=== PATIENT | female | born 1955 | race Caucasian/White ===

== ENCOUNTER 2023-02-23 08:32 | Outpatient (CLI) | payer MEDICARE, SELFPAY | END 2023-02-23 08:33 | disposition home or self-care (01) | LOC: NFLDREF 16:46 | PROVIDERS: PCP Physician Assistant Medical; Referring Provider Physician Assistant Medical; Visit Provider Physician Assistant Medical | DX: Z00.00 Encounter for general adult medical examination without abnormal findings (principal); R03.0 Elevated blood-pressure reading, without diagnosis of hypertension; D64.9 Anemia, unspecified; R41.89 Other symptoms and signs involving cognitive functions and awareness; R46.89 Other symptoms and signs involving appearance and behavior | CPT/HCPCS: 80061; 82607; 83540; 83550; 84443; 87086 ==

== ENCOUNTER 2023-03-11 16:17 | Outpatient (CLI) | payer MEDICARE, SELFPAY | END 2023-03-11 16:18 | disposition home or self-care (01) | PROVIDERS: PCP Physician Assistant Medical; Visit Provider Physician Assistant Medical | DX: R41.89 Other symptoms and signs involving cognitive functions and awareness (principal); R03.0 Elevated blood-pressure reading, without diagnosis of hypertension; D64.9 Anemia, unspecified | CPT/HCPCS: 82306; 82607; 82746; 84425; 84443 ==

== ENCOUNTER 2023-04-15 08:27 | Outpatient (CLI) | payer MEDICARE, SELFPAY ==
--- NOTE | 2023-04-15 09:15 | CRLHL7_ITS ---
For Patients: As a result of the Cures Act, medical imaging exams and procedure reports are released immediately into your electronic medical record. You may view this report before your referring provider. If you have questions, please contact your health care provider. Indication: Change in cognitive function. Technique: Multiplanar, multisequence MRI of the brain was performed without intravenous contrast. Comparison: None relevant available. Findings: Moderate thinning of the corpus callosum. [facility] clivus appear intact. Mild degenerative change visualized upper cervical spine. There is no restricted diffusion. No intracranial hemorrhage. The ventricles are proportionate to the cerebral sulci. The 4th ventricle appears midline. The basal cisterns appear patent. No abnormal extra-axial fluid collection identified. Mild to moderate parenchymal volume loss. Mild T2 FLAIR hyperintense foci within the subcortical and periventricular white matter, favored to represent chronic ischemic microvascular disease. There is no intracranial mass, abnormal mass-effect or midline shift identified. Major intracranial vascular flow voids appear grossly intact. Both globes are preserved. Impression: 1. No acute/subacute infarct. 2. Mild to moderate parenchymal volume loss with mild chronic ischemic microvascular disease. Dictated by Todd Anton MD @ 04/15/2023 2:53:10 PM (Electronically Signed)
== END 2023-04-15 08:28 | disposition home or self-care (01) ==
PROVIDERS: PCP Physician Assistant Medical; Referring Provider Psychiatry & Neurology Neurology; Visit Provider Physician Assistant Medical
DX: R41.89 Other symptoms and signs involving cognitive functions and awareness (principal); I67.82 Cerebral ischemia; R46.89 Other symptoms and signs involving appearance and behavior
CPT/HCPCS: 70551

== ENCOUNTER 2023-06-02 14:50 | Outpatient (CLI) | payer MEDICARE, SELFPAY ==
--- NOTE | 2023-06-02 15:00 | CRLHL7_ITS ---
For Patients: As a result of the Century Cures Act, medical imaging exams and procedure reports are released immediately into your electronic medical record. You may view this report before your referring provider. If you have questions, please contact your health care provider. BILATERAL SCREENING MAMMOGRAM WITH COMPUTER-AIDED DETECTION AND TOMOSYNTHESIS TECHNIQUE: CC and MLO views were obtained. These mammographic images have been obtained using full-field digital technique. These mammographic images were interpreted with the benefit of computer-aided detection. Breast Tomosynthesis was used in this interpretation. COMPARISON FILM: 07/22/18, 12/25/16, 07/10/15. FINDINGS: The breasts are heterogeneously dense, which may obscure small masses IMPRESSION: There is no radiographic evidence for malignancy. ASSESSMENT: BI-RADS Category 1: Negative RECOMMENDATION: Routine screening mammogram in 1 year. A lay language report of this examination will be provided to the patient. Raghavendra Hernandez M.D. Diagnostic Radiologist [email or web address] GREY/Dictated by: Raghavendra Hernandez MD @ 06/03/2023 8:34:00 AM (Electronically Signed)
--- NOTE | 2023-06-02 15:30 | CRLHL7_ITS ---
For Patients: As a result of the Century Cures Act, medical imaging exams and procedure reports are released immediately into your electronic medical record. You may view this report before your referring provider. If you have questions, please contact your health care provider. DXA BONE MINERAL DENSITY STUDY Current height (in): 64.0. Weight (lb): 137.0. Menopause age: 56. Ethnicity: White. Reason for exam: Screening. 1. Have you had a previous hip or vertebral fracture? No. 2. Have you had any fractures during your adult life which did not result from significant trauma (e.g., auto accident)? No. 3. Did either of your parents have a hip fracture? No. 4. Do you smoke? No. 5. Have you ever taken Glucocorticoids? No. 6. Do you have rheumatoid arthritis? No. 7. Do you have secondary osteoporosis? No. 8. Do you drink 3 or more alcoholic drinks per day? No. 9. Are you being treated for osteoporosis? No. 10. Have you ever taken any of the following medications: Actonel, Evista, Fosamax, Miacalcin, Reclast, Boniva, Forteo, HRT (i.e. estrogen/hormone therapy), Protelos, Prolia, Vitamin D, Calcium, other ??? please specify. ANSWER: Yes, vitamin D. 11. Do you have any of the following medical conditions: Anorexia or bulimia, asthma or emphysema, end stage renal disease, hyperparathyroidism, any seizure disorders, cancer, inflammatory bowel diseases, hysterectomy, other ??? please specify. ANSWER: Yes, hysterectomy. 12. What was your maximum height (inches)? 64. 13. Do you perform weight bearing exercise regularly? Yes. 14. Do you regularly consume dairy products? Yes. 15. Do you drink caffeinated beverages? Yes. 16. At what age did your period start? 17. 17. Are you premenopausal? No. 18. How many full term pregnancies have you had? 3. 19. Have you ever missed your period for more than 6 months in a row (not including or menopause)? No. TECHNIQUE: Bone mineral density study was performed using the S[employer]nik8. FINDINGS: The results of the study expressed as bone mineral density (BMD) are as follows: Lumbar spine L1 to L4: BMD: 0.795 g/cm2. T-score: -2.3. Z-score: -0.4. Neck Left: BMD: 0.553 g/cm2. T-score: -2.7. Z-score: -1.0. Right: BMD: 0.630 g/cm2. T-score: -2.0. Z-score: -0.3. Total Left: BMD: 0.758 g/cm2. T-score: -1.5. Z-score: -0.2. Right: BMD: 0.800 g/cm2. T-score: -1.2. Z-score: 0.2. IMPRESSION: Osteoporosis. Raghavendra Hernandez M.D. Diagnostic Radiologist [email or web address] Transcribed: 10:57 am DW/Dictated by: Raghavendra Hernandez MD @ 06/03/2023 9:16:00 AM (Electronically Signed)
== END 2023-06-02 14:51 | disposition home or self-care (01) ==
PROVIDERS: PCP Physician Assistant Medical; Visit Provider Physician Assistant Medical
DX: Z12.31 Encounter for screening mammogram for malignant neoplasm of breast (principal); R92.2 Inconclusive mammogram
CPT/HCPCS: 77063; 77067; 77080

== ENCOUNTER 2025-02-07 08:49 | Outpatient (CLI) | payer MEDICARE, SELFPAY | END 2025-02-07 08:50 | disposition home or self-care (01) | LOC: NFLDREF 02-14 00:21 | PROVIDERS: PCP Physician Assistant Medical; Referring Provider Physician Assistant Medical; Visit Provider Physician Assistant Medical | DX: Z00.01 Encounter for general adult medical examination with abnormal findings (principal); G30.0 Alzheimer's disease with early onset; F02.80 Dementia in other diseases classified elsewhere, unspecified severity, without behavioral disturbance, psychotic disturbance, mood disturbance, and anxiety; M81.0 Age-related osteoporosis without current pathological fracture; Z11.4 Encounter for screening for human immunodeficiency virus [HIV]; Z11.59 Encounter for screening for other viral diseases; Z13.6 Encounter for screening for cardiovascular disorders | CPT/HCPCS: 80053; 80061; 82306; 82607; 84443; 86703; 86803 ==

== ENCOUNTER 2025-02-15 14:34 | Outpatient (CLI) | payer MEDICARE, SELFPAY ==
--- NOTE | 2025-02-15 15:00 | CRLHL7_ITS ---
For Patients: As a result of the Century Cures Act, medical imaging exams and procedure reports are released immediately into your electronic medical record. You may view this report before your referring provider. If you have questions, please contact your health care provider. Indication: ELEVATED LIVER TEST, PALPABLE HEPATOMEGALY ON EXAM Technique: Pre and postcontrast CT abdomen. 100 cc Isovue 370 intravenous contrast. Arterial, portal venous and 5 minute delayed post-contrast images acquired. Please note that all CT scans at this facility use dose modulation, iterative reconstruction, and/or weight-based dosing when appropriate to reduce radiation dose to as low as reasonably achievable. Comparison: None Findings: There is a simple nonenhancing cyst within the liver which measures 6.4 millimeters. No suspicious intrahepatic mass. No AV fistula. Scarring within the right lung base. No pleural effusion. Visualized renal parenchyma appears normal. Normal adrenal glands. No pancreatic lesion. Spleen is nonenlarged. The liver measures 16.8 cm in craniocaudad dimension. No hiatal hernia or pericardial effusion. Atherosclerotic changes. No aneurysm. Normal patency of the venous structures without deep venous thrombosis. Wedge compression fracture deformities involving several lower thoracic/upper lumbar vertebral bodies are present. The gallbladder is normal. Impression: No suspicious intrahepatic mass. Incidental simple intrahepatic cyst measuring less than 1 cm. Multiple age-indeterminate wedge compression fracture deformities lower thoracic/upper lumbar spine. Please note that all CT scans at this facility use dose modulation, iterative reconstruction, and/or weight-based dosing when appropriate to reduce radiation dose to as low as reasonably achievable. Dictated by Raghavendra Hernandez MD @ 02/16/2025 11:30:40 AM (Electronically Signed)
== END 2025-02-15 14:35 | disposition home or self-care (01) ==
LOC: CT 14:35
PROVIDERS: PCP Physician Assistant Medical; Visit Provider Physician Assistant Medical
DX: R79.89 Other specified abnormal findings of blood chemistry (principal); K76.89 Other specified diseases of liver; M48.55XA Collapsed vertebra, not elsewhere classified, thoracolumbar region, initial encounter for fracture; G30.0 Alzheimer's disease with early onset; F02.80 Dementia in other diseases classified elsewhere, unspecified severity, without behavioral disturbance, psychotic disturbance, mood disturbance, and anxiety
CPT/HCPCS: 74170; Q9967

== ENCOUNTER 2025-05-17 13:08 | Outpatient (CLI) | payer MEDICARE, SELFPAY ==
--- NOTE | 2025-05-17 13:40 | CRLHL7_ITS ---
For Patients: As a result of the Century Cures Act, medical imaging exams and procedure reports are released immediately into your electronic medical record. You may view this report before your referring provider. If you have questions, please contact your health care provider. INDICATION: BILATERAL SCREENING MAMMOGRAM, ASYMPTOMATIC 70 Y/O FEMALE COMPARISON: 06/02/2023, 07/22/2018, 12/25/2016 TECHNIQUE: Digital mammogram in CC and MLO projections including computer-aided detection (CAD) and tomosynthesis. BREAST COMPOSITION: The breasts are heterogeneously dense, which may obscure small masses. FINDINGS: No suspicious findings. ASSESSMENT: BI-RADS 1 Negative RECOMMENDATION: Annual screening mammogram. A lay language report of this examination will be provided to the patient. Dictated by: Christy Marina MD @ 05/18/2025 22:41:05 (Electronically Signed)
== END 2025-05-17 13:09 | disposition home or self-care (01) ==
LOC: MAMMO 13:09
PROVIDERS: PCP Physician Assistant Medical; Visit Provider Physician Assistant Medical
DX: Z12.31 Encounter for screening mammogram for malignant neoplasm of breast (principal); R92.333 Mammographic heterogeneous density, bilateral breasts
CPT/HCPCS: 77063; 77067